=== PATIENT | male | born 1945 | race Caucasian/White ===

== ENCOUNTER → 2017-02-12 | Outpatient (CLI) | payer MEDICARE, OTHER ==
[~2017-02-12] MED LIST: BAYER CHEWABLE81 MG PO; COREG 12.5MG12.5 MG PO; DIOVAN160 MG PO; ELIQUIS5 MG PO; FERROUS SULFAT325 MG PO; FOLIC ACID1 MG PO; GLIPIZIDE5 MG PO; GLUCOPHAGE1000 MG PO; HYDROCHLOROTHIA25 MG PO; KLOR-CON 1010 MEQ PO; LANTUS SOL100 UNIT/1 SQ; LASIX 40 MG TAB40 MG PO; LIPITOR TAB 2020 MG PO; LISINOPRIL10 MG PO; NEURONTIN 300300 MG PO; SERTRALINE HCL50 MG PO; TRAZODONE HCL100 MG PO; ULTRAM50 MG PO
== END ==
LOC: HEART 5 09:07
DX: R42 Dizziness and giddiness (principal); R06.02 Shortness of breath; I10 Essential (primary) hypertension; E78.5 Hyperlipidemia, unspecified; I51.7 Cardiomegaly; I07.1 Rheumatic tricuspid insufficiency; I51.9 Heart disease, unspecified
CPT/HCPCS: 78452; 93306; A9502; J2785

== ENCOUNTER 2021-04-02 23:01 | Inpatient (IN) | payer MEDICARE, OTHER ==
[~2021-04-02] VITALS: Ht 188 cm; Wt 133.9 kg
[~2021-04-02 23:01] MED LIST changes: +ACYCLOVIR400 MG PO; +ASPIR 8181 MG PO; +ASPIRIN81 MG PO; +BREO ELLIPTA 11 EACH INH; +CALCIUM CARBON500 MG PO; +COREG 25MG TAB25 MG PO; +DEXAMETHASONE 44 MG PO; +DOCUSATE SODIU1 EAC1 PO; +DULCOLAX5 MG PO; +ELIQUIS 5 MG TAB5 MG PO; +FAMOTIDINE20 MG PO; +FLEXERIL 10 MG10 MG PO; +FLOMAX0.4 MG PO; +GABAPENTIN600 MG PO; +HUMALOG100 UNIT/1 SC; +IPRAT-ALBUT 0.5-3 ML INH; +JUVEN PACKET1 EACH PO; +KLONOPIN0.5 MG PO; +LACTULOSE20 GM/30 M PO; +LANTUS INS100 UTS/M1 SC; +LANTUS INS100 UTS/ML SC; +LECITHIN1200 MG PO; +LIPITOR TAB 1010 MG PO; +MIRALAX17 GM PO; +MULTIPLE VITAM1 EACH PO; +MYLANTA MAXIMU355 ML PO; +NEURONTIN 100100 MG PO; +NORCO 10-325 T1 EACH PO; +NORVASC 5 MG TAB5 MG PO; +ONDANSETRON ODT8 MG PO; +OXYCODONE HCL10 MG PO; +REVLIMID25 MG PO; +TYLENOL 500 MG500 MG PO; +VITAMIN D325 MC6 PO; +WARFARIN SODIUM6 MG PO
[2021-04-03 00:14] LABS: HEMOGLOBIN 10.3 gm/dl (14.0-17.5); RED BLOOD COUNT 3.41 M/UL (4.20-5.50); WHITE BLOOD COUNT 5.2 K/UL (4.5-11.0)
[2021-04-03 00:37] LABS: BUN/CREATININE RATIO 13 (0-10)
[2021-04-03] MEDS ORDERED: FOLIC ACID 1 MG1 MG PO (03:01)
[2021-04-03] MEDS ORDERED: PIOGLITAZONE HC45 MG PO (03:01)
[2021-04-03] MEDS ORDERED: GLIPIZIDE5 MG PO (03:02)
[2021-04-03] MEDS ORDERED: MEN'S MULTIVIT1 EACH PO (03:02)
[2021-04-03] MEDS ORDERED: DONEPEZIL HCL5 MG PO (03:02)
[2021-04-03] MEDS ORDERED: AMLODIPINE BESYL5 MG PO (03:03)
[2021-04-03] MEDS ORDERED: FAMOTIDINE20 MG PO (03:03)
[2021-04-03] MEDS ORDERED: LISINOPRIL10 MG PO (03:03)
[2021-04-03] MEDS ORDERED: ULTRAM50 MG PO (03:04)
[2021-04-03 06:00] LABS: HEMOGLOBIN 8.9 gm/dl (14.0-17.5); RED BLOOD COUNT 3.05 M/UL (4.20-5.50); WHITE BLOOD COUNT 6.1 K/UL (4.5-11.0)
[2021-04-04 05:03] LABS: HEMOGLOBIN 8.9 gm/dl (14.0-17.5); RED BLOOD COUNT 2.99 M/UL (4.20-5.50); WHITE BLOOD COUNT 6.9 K/UL (4.5-11.0)
[2021-04-05 05:56] LABS: HEMOGLOBIN 9.3 gm/dl (14.0-17.5); RED BLOOD COUNT 3.04 M/UL (4.20-5.50)
[2021-04-05 05:58] LABS: WHITE BLOOD COUNT 4.4 K/UL (4.5-11.0)
[2021-04-05 07:11] LABS: ANTISTREPTOLYSIN O AB <20.0 IU/mL (0.0-200.0); COMPLEMENT C3, SERUM 133 mg/dL (82-167); COMPLEMENT C4, SERUM 55 mg/dL (12-38); CORTISOL 6.8 ug/dL (.); HBSAG SCREEN Negative (Negative); HEP B CORE AB, TOT Negative (Negative); HEP C VIRUS AB <0.1 (0.0-0.9)
[2021-04-05 12:14] LABS: ANTI-DSDNA ANTIBODIES <1 IU/mL (0-9)
[2021-04-05 16:14] LABS: ATYPICAL PANCA <1:20 titer (Neg:<1:20); CYTOPLASMIC (C-ANCA) <1:20 titer (Neg:<1:20); PERINUCLEAR (P-ANCA) <1:20 titer (Neg:<1:20)
[2021-04-05 16:17] LABS: BORDETELLA PARAPERTUSSIS Not Detected (Not Detectd); BORDETELLA PERTUSSIS Not Detected (Not Detectd); CHLAMYDIA PNEUMONIAE Not Detected (Not Detectd); CORONAVIRUS HKU1 Not Detected (Not Detectd); CORONAVIRUS NL63 Not Detected (Not Detectd); CORONAVIRUS OC43 Not Detected (Not Detectd); CORONOAVIRUS 229E Not Detected (Not Detectd); HUMAN METAPNEUMOVIRUS Not Detected (Not Detectd); HUMAN RHINOVIRUS/ENTEROVIRUS Not Detected (Not Detectd); INFLUENZA A Not Detected (Not Detectd); INFLUENZA B Not Detected (Not Detectd); MYCOPLASMA PNEUMONIAE Not Detected (Not Detectd); PARAINFLUENZA VIRUS 1 Not Detected (Not Detectd); PARAINFLUENZA VIRUS 2 Not Detected (Not Detectd); PARAINFLUENZA VIRUS 3 Not Detected (Not Detectd); PARAINFLUENZA VIRUS 4 Not Detected (Not Detectd); RESPIRATORY SYNCYTIAL VIRUS Not Detected (Not Detectd)
--- NOTE | 2021-04-05 17:23 | NUR ---
AGREE WITH ASSESSMENT CHARTED BY JULIAN POLANCO.
[2021-04-05 17:33] LABS: SARS-CoV-2 NOT DETECTED (Not Detectd)
[2021-04-06 02:43] LABS: HEMOGLOBIN 8.9 gm/dl (14.0-17.5); RED BLOOD COUNT 2.92 M/UL (4.20-5.50); WHITE BLOOD COUNT 4.8 K/UL (4.5-11.0)
[2021-04-06 07:13] LABS: OSMOLALITY, URINE 315 (.)
[2021-04-06 14:12] LABS: ORGANISM ID Not indicated. (.); SPECIMEN SOURCE Urine (.); STREPTOCOCCUS PNEUMONIAE AG Negative (Negative)
[2021-04-06 17:12] LABS: A/G RATIO 0.9 (0.7-1.7); ALBUMIN 2.6 g/dL (2.9-4.4); ALPHA-1-GLOBULIN 0.2 g/dL (0.0-0.4); ALPHA-2-GLOBULIN 0.7 g/dL (0.4-1.0); BETA GLOBULIN 0.9 g/dL (0.7-1.3); GAMMA GLOBULIN 1.3 g/dL (0.4-1.8); GLOBULIN, TOTAL 3.1 g/dL (2.2-3.9); IMMUNOGLOBULIN A, QN, SERUM 241 mg/dL (61-437); IMMUNOGLOBULIN G, QN, SERUM 1116 mg/dL (603-1613); IMMUNOGLOBULIN M, QN, SERUM 27 mg/dL (15-143); M-SPIKE 0.5 g/dL (Not Observed); PROTEIN, TOTAL, SERUM 5.7 g/dL (6.0-8.5)
[2021-04-07 10:58] LABS: HEMOGLOBIN 9.1 gm/dl (14.0-17.5); RED BLOOD COUNT 3.06 M/UL (4.20-5.50); WHITE BLOOD COUNT 4.9 K/UL (4.5-11.0)
[2021-04-07] MEDS ORDERED: DEX4 GLUCOSE4 GM PO (13:23)
[2021-04-07] MEDS ORDERED: ZYVOX600 MG PO (13:23)
[2021-04-07] MEDS ORDERED: HUMALOG 10100 UNITS/ SC ×2 (13:23→13:31)
[2021-04-07] MEDS ORDERED: PROTONIX 40 MG40 M1 PO (13:23)
[2021-04-07] MEDS ORDERED: AUGMENTIN 875-1 EACH PO (13:23)
[2021-04-07 16:12] LABS: M-SPIKE, MG/24 HR 4105 mg/24 hr (Not Observed); PROTEIN,TOTAL,URINE 120.6 mg/dL (Not Estab.)
== END 2021-04-07 15:11 | disposition home or self-care (01) | DRG 682 ==
LOC: ER1 23:01 → CDU 04-03 01:24 → CCU 04-03 01:24 → PROG CARE 04-05 17:58
PROVIDERS: Emergency Medicine; Internal Medicine; Internal Medicine Nephrology; Internal Medicine Pulmonary Disease; ADMIT Internal Medicine
DX: N17.9 Acute kidney failure, unspecified (principal); J15.9 Unspecified bacterial pneumonia; J81.0 Acute pulmonary edema; G93.41 Metabolic encephalopathy; J96.01 Acute respiratory failure with hypoxia; I13.0 Hypertensive heart and chronic kidney disease with heart failure and stage 1 through stage 4 chronic kidney disease, or unspecified chronic kidney disease; E87.2 Acidosis; C90.00 Multiple myeloma not having achieved remission; J44.0 Chronic obstructive pulmonary disease with (acute) lower respiratory infection; I50.22 Chronic systolic (congestive) heart failure; E11.649 Type 2 diabetes mellitus with hypoglycemia without coma; Z86.711 Personal history of pulmonary embolism; E11.22 Type 2 diabetes mellitus with diabetic chronic kidney disease; N18.30 Chronic kidney disease, stage 3 unspecified; I25.10 Atherosclerotic heart disease of native coronary artery without angina pectoris; Z79.899 Other long term (current) drug therapy; Z86.718 Personal history of other venous thrombosis and embolism; Z79.01 Long term (current) use of anticoagulants; Z79.4 Long term (current) use of insulin; Z95.1 Presence of aortocoronary bypass graft; E78.5 Hyperlipidemia, unspecified; F41.9 Anxiety disorder, unspecified; F32.9 Major depressive disorder, single episode, unspecified; D63.1 Anemia in chronic kidney disease; Z66 Do not resuscitate; Z87.891 Personal history of nicotine dependence; Z80.8 Family history of malignant neoplasm of other organs or systems; R80.9 Proteinuria, unspecified; E87.5 Hyperkalemia
CPT/HCPCS: ECHO; 36415; 36600; 70450; 71045; 71046; 71250; 80048; 80053; 80307; 81001; 82436; 82533; 82550; 82553; 82570; 82652; 82784; 82803; 82962; 83520; 83605; 83615; 83690; 83735; 83874; 83880; 83883; 83935; 84100; 84133; 84155; 84156; 84165; 84166; 84300; 84439; 84443; 84484; 84550; 85025; 85027; 85384; 85610; 85730; 86038; 86060; 86140; 86160; 86162; 86225; 86256; 86334; 86335; 86704; 86706; 86708; 86803; 87040; 87081; 87278; 87340; 87633; 87899; 89050; 93005; 93306; 96374; 97110; 97110-GP-CQ; 97116-GP-CQ; 97162; 97166; 97530-GP-CQ; 99285; A6212; C9113; G0480; J0360; J1335; J1610; J2185; J2405; J7030; P9047; U0002